=== PATIENT | male | born 1975 | race Two or more races ===

== ENCOUNTER 2017-11-03 10:34 | Inpatient (IN) | payer SELFPAY ==
[~2017-11-03] VITALS: Ht 170.2 cm; Wt 90.7 kg
[2017-11-03] MEDS ORDERED: SODIUM CHLORIDE 0.9% 1,000 ML IV ONE ×2 (10:43)
[2017-11-03] MEDS ORDERED: ONDANSETRON HCL 4 MG/2 ML VIAL IV ONE (10:45)
[2017-11-03] MEDS ORDERED: MORPHINE SULFATE 4 MG/ML SYR/VIAL IV ONE (10:45)
[2017-11-03] MEDS ORDERED: IOHEXOL 350 MG/ML 100ML IJ ONE (11:03)
[2017-11-03 11:12] LABS: Basophils # (auto) 0.1 uL; Eosinophils # (auto) 0.2 uL; Eosinophils % (auto) 1.3 % (0.0-7.0); Hematocrit 46.6 % (41.0-53.0); Hemoglobin 16.3 g/dL (13.5-17.5); Lymphocytes # (auto) 4.4 uL; Lymphocytes % (auto) 37.6 % (10.0-50.0); Mean Corpuscular Hemoglobin 29.1 pg (28.0-32.0); Mean Corpuscular Volume 83.1 fL (80.0-100.0); Monocytes # (auto) 0.8 uL; Monocytes % (auto) 7.3 % (0.0-12.0); Neutrophils # (auto) 6.2 uL; Neutrophils % (auto) 52.8 % (37.0-80.0); Nucleated Red Blood Cells % 0.1 %; Platelet Count (auto) 346 10^3/uL (140-450); Red Blood Cells 5.61 10^6/uL (4.5-5.90); Red Cell Distribution Width 13.5 % (11.8-14.3); White Blood Cell 11.7 10^3/uL (4.4-10.8)
[2017-11-03 11:24] LABS: Alanine Aminotransferase 32 U/L (16-61); Albumin 3.9 g/dL (3.4-5.0); Alkaline Phosphatase 88 U/L (45-117); Anion Gap 9 (5-15); Aspartate Aminotransferase 16 U/L (15-37); BUN/Creatinine Ratio 11.4; Bilirubin, Total 0.3 mg/dL (0.2-1.0); Blood Urea Nitrogen 10 mg/dL (7-18); Calcium 8.7 mg/dL (8.5-10.1); Carbon Dioxide 24 mmol/L (21-32); Chloride 108 mmol/L (98-107); GFR African American 123 mL/min; GFR Non-African American 101 mL/min; Glucose 124 mg/dL (74-106); Potassium 3.5 mmol/L (3.5-5.1); Sodium 141 mmol/L (136-145)
[2017-11-03 11:27] LABS: INR 0.96 (0.9-1.15); Partial Thromboplastin Time 24.5 sec (23.78-33.04); Prothrombin Time 10.3 sec (9.27-12.13)
[2017-11-03] MEDS ORDERED: metroNIDAZOLE 500MG/100ML 100 ML IV ONE (12:30)
[2017-11-03] MEDS ORDERED: PIPERACILLIN-TAZOB 3.375GM 100 ML IV ONE (12:30)
[2017-11-03 13:07] LABS: Urine Bacteria NONE SEEN /hpf (None Seen); Urine Blood Negative /uL (Negative); Urine Mucus FEW (None Seen); Urine Specific Gravity 1.046 (1.001-1.035); Urine WBC <1 /hpf (0 - 3)
[2017-11-03] MEDS ORDERED: cefTRIAXone 1GM/10ml IVPUSH 10 ML IV ONE (15:00)
[2017-11-03] MEDS ORDERED: HYDROcodone-ACET 5/325MG TAB PO PRN (15:15)
[2017-11-03] MEDS ORDERED: TEMAZEPAM 15 MG CAP PO PRN (15:15)
[2017-11-03] MEDS ORDERED: NITROGLYCERIN 0.4 MG SL TAB SL PRN (15:15)
[2017-11-03] MEDS ORDERED: MORPHINE SULFATE 4 MG/ML SYR/VIAL IV PRN (15:15)
[2017-11-03] MEDS ORDERED: MORPHINE SULF INJ 2 MG/ML SYRINGE 1ML IV PRN (15:15)
[2017-11-03] MEDS ORDERED: ACETAMINOPHEN 325 MG TAB PO PRN (15:15)
[2017-11-03] MEDS ORDERED: DOCUSATE SOD 100 MG CAP PO PRN (15:15)
[2017-11-03] MEDS ORDERED: ONDANSETRON HCL 4 MG/2 ML VIAL IV PRN (15:15)
[2017-11-03 17:39] VITALS: BP 124/77
[2017-11-03] MEDS ORDERED: IBUP600T27 PO (17:52)
[2017-11-03] MEDS: IBUPROFEN 600 MG TAB PO SCH (18:25)
[2017-11-03 19:45] LABS: Lactic Acid w/Reflex 2.3 mmol/L (0.4-2.0)
[2017-11-03 22:00] VITALS: BP 126/71
[2017-11-03] MEDS: FAMOTIDINE 20 MG TAB PO SCH (22:20)
[2017-11-03] MEDS: SODIUM CHLOR 0.9% PF (SALINE LOCK) 10ML VIAL/SYR IV SCH (22:20)
[2017-11-03] MEDS: metroNIDAZOLE 500MG/100ML 100 ML IV SCH (22:25)
[2017-11-04] MEDS: IBUPROFEN 600 MG TAB PO SCH ×3 (01:02→12:47)
[2017-11-04 05:00] VITALS: BP 129/82
[2017-11-04 06:07] LABS: Albumin 3.1 g/dL (3.4-5.0); BUN/Creatinine Ratio 15.3; Calcium 8.3 mg/dL (8.5-10.1); Potassium 3.9 mmol/L (3.5-5.1)
[2017-11-04 06:09] LABS: Basophils # (auto) 0 uL; Eosinophils # (auto) 0.2 uL; Monocytes # (auto) 0.7 uL; Neutrophils # (auto) 4.7 uL; Nucleated Red Blood Cells % 0.1 %
[2017-11-04 06:09] LABS: Bilirubin, Total 0.3 mg/dL (0.2-1.0); Total Protein 6.6 g/dL (6.4-8.2)
[2017-11-04 06:16] LABS: Basophils % (auto) 0.5 % (0.0-2.0); Eosinophils % (auto) 1.8 % (0.0-7.0); Hematocrit 41.3 % (41.0-53.0); Lymphocytes # (auto) 2.7 uL; Lymphocytes % (auto) 32.5 % (10.0-50.0); Mean Corpuscular Hemoglobin 28.6 pg (28.0-32.0); Mean Corpuscular Hgb Conc. 33.9 g/dL (32.0-36.0); Mean Corpuscular Volume 84.2 fL (80.0-100.0); Monocytes % (auto) 8.8 % (0.0-12.0); Neutrophils % (auto) 56.4 % (37.0-80.0); Platelet Count (auto) 280 10^3/uL (140-450); Red Cell Distribution Width 12.7 % (11.8-14.3); White Blood Cell 8.3 10^3/uL (4.4-10.8)
[2017-11-04] MEDS: metroNIDAZOLE 500MG/100ML 100 ML IV SCH ×2 (06:24→14:00)
[2017-11-04] MEDS: SODIUM CHLOR 0.9% PF (SALINE LOCK) 10ML VIAL/SYR IV SCH ×2 (06:30→14:00)
[2017-11-04 09:00] VITALS: BP 123/64
[2017-11-04] MEDS ORDERED: cefTRIAXone 1GM/10ml IVPUSH 10 ML IV SCH (09:00)
[2017-11-04] MEDS ORDERED: MULTIPLE VITAMIN TAB PO SCH (10:00)
[2017-11-04] MEDS: FAMOTIDINE 20 MG TAB PO SCH (10:20)
[2017-11-04 13:00] VITALS: BP 154/96
[2017-11-04 17:00] VITALS: BP 137/84
== END 2017-11-04 17:45 | disposition home or self-care (01) | DRG 392 ==
LOC: ER 10:40 → TELE 10:41 → TELE-WESTW 16:42
PROVIDERS: ADMIT Internal Medicine; ATTEND Internal Medicine
DX: K57.32 Diverticulitis of large intestine without perforation or abscess without bleeding (principal); E66.9 Obesity, unspecified; K59.00 Constipation, unspecified; M10.9 Gout, unspecified; Z68.31 Body mass index [BMI] 31.0-31.9, adult
CPT/HCPCS: 36415; 71045; 74177; 80053; 81001; 83605; 84484; 85025; 85610; 85730; 86850; 86900; 86901; 87040; 93005; 96361; 96365; 96368; 96375; J0696; J2405; J2543; J3490

== ENCOUNTER 2018-07-27 09:01 | Emergency (ER) | payer MEDICAID, OTHER ==
[~2018-07-27] VITALS: Ht 165.1 cm; Wt 88.0 kg
[~2018-07-27 09:01] MED LIST: IBUP600T27 PO
[2018-07-27] MEDS ORDERED: KETOROLAC TROMETH 60MG/2ML VIAL IM ONE (10:00)
[2018-07-27 11:08] VITALS: BP 120/83
== END 2018-07-27 11:22 | disposition home or self-care (01) ==
LOC: ER 09:01
DX: M10.061 Idiopathic gout, right knee (principal)
CPT/HCPCS: 93005; 96372; 99283; J1885